=== PATIENT | male | born 1955 | race Caucasian/White ===

== ENCOUNTER 2020-10-23 14:41 | Inpatient (IN) | payer OTHER ==
[2020-10-23 17:03] LABS: BASO % 0.2 % (0-2.0); HEMATOCRIT 30.5 % (35.4-49); HEMOGLOBIN 10.7 GM/dL (11.7-16.9); LYMPH % 3.9 % (8-40); MCH 29.1 pg (25.7-33.7); MCHC 34.9 g/dl (32.0-35.9); MEAN CELL VOLUME 83.3 fl (80-96); MEAN PLT VOLUME 8.7 fl (7.5-11.1); MONO % 5.3 % (3.8-10.2); NEUT % 90.6 % (42.8-82.8); PLATELET COUNT 319 K/MM3 (134-434); RBC 3.67 M/mm3 (4.00-5.60); RDW 15.2 % (11.9-15.9); WHITE BLOOD COUNT 10.8 K/mm3 (4.0-10.0)
[2020-10-23 17:12] LABS: INR 1.03 (0.83-1.09); PROTHROMBIN TIME (PATIENT) 12.6 SEC (9.7-13.0)
[2020-10-23 17:15] LABS: ACTIVATED PTT 25.9 SECONDS (25.2-36.5)
[2020-10-23 17:39] LABS: POTASSIUM 4.5 mmol/L (3.5-5.1)
[2020-10-23 17:41] LABS: CALCIUM 7.5 mg/dL (8.5-10.1)
[2020-10-23 17:42] LABS: ALBUMIN 2.2 g/dl (3.4-5.0)
[2020-10-23 17:45] LABS: BILIRUBIN,DIRECT 0.3 mg/dL (0.0-0.2); CREATININE 2.1 mg/dL (0.55-1.3)
[2020-10-23 17:46] LABS: BILIRUBIN,TOTAL 0.8 mg/dL (0.2-1); TOT PROT 6.1 g/dl (6.4-8.2)
[2020-10-23] MEDS ORDERED: SODIUM CHLORIDE 1,000 ML IV STA (17:59)
[2020-10-23] MEDS ORDERED: DEXAMETHASONE SOD PHOSPHATE 4 MG/1 ML VIAL IVPUSH STA ×2 (20:27→20:51)
[2020-10-23] MEDS ORDERED: DEXAMETHASONE SOD PHOSPHATE 10 MG/1 ML VIAL ONE (21:30)
[2020-10-23] MEDS ORDERED: INSULIN SLIDING SCALE (NOVOLOG) 1 VIAL SQ SCH (22:00)
[2020-10-23] MEDS ORDERED: ASCORBIC ACID 500 MG TABLET (FP) ONE (22:57)
[2020-10-23] MEDS: INSULIN SLIDING SCALE (NOVOLOG) 1 VIAL SQ SCH (23:17)
[2020-10-23] MEDS: ASCORBIC ACID 500 MG TABLET (FP) PO SCH (23:18)
[2020-10-23] MEDS ORDERED: MECLIZINE HCL 25 MG TABLET (FP) PO PRN (23:36)
[2020-10-24] MEDS ORDERED: SODIUM CHLORIDE 1,000 ML IV STA (00:18)
[2020-10-24 07:41] LABS: BASO % 0.2 % (0-2.0); HEMATOCRIT 27.5 % (35.4-49); HEMOGLOBIN 9.6 GM/dL (11.7-16.9); LYMPH % 2.4 % (8-40); MCH 28.5 pg (25.7-33.7); MEAN CELL VOLUME 81.6 fl (80-96); MEAN PLT VOLUME 8.4 fl (7.5-11.1); MONO % 3.2 % (3.8-10.2); NEUT % 94.2 % (42.8-82.8); PLATELET COUNT 309 K/MM3 (134-434); RBC 3.37 M/mm3 (4.00-5.60); RDW 15.4 % (11.9-15.9); WHITE BLOOD COUNT 14.5 K/mm3 (4.0-10.0)
[2020-10-24 07:44] LABS: INR 1.01 (0.83-1.09); PROTHROMBIN TIME (PATIENT) 12.4 SEC (9.7-13.0)
[2020-10-24 08:11] LABS: POTASSIUM 4.4 mmol/L (3.5-5.1)
[2020-10-24 08:21] LABS: ALBUMIN 2.1 g/dl (3.4-5.0); BLOOD UREA NITROGEN 58.7 mg/dL (7-18); CALCIUM 7.7 mg/dL (8.5-10.1)
[2020-10-24 08:22] LABS: MAGNESIUM 2.2 mg/dL (1.8-2.4)
[2020-10-24 08:24] LABS: CREATININE 1.8 mg/dL (0.55-1.3); PHOSPHOROUS 3.3 mg/dL (2.5-4.9)
[2020-10-24 08:25] LABS: BILIRUBIN,TOTAL 1.1 mg/dL (0.2-1); TOT PROT 5.6 g/dl (6.4-8.2)
[2020-10-24] MEDS: LISINOPRIL 20 MG TABLET PO SCH (09:12)
[2020-10-24] MEDS: ZINC SULFATE 220 MG CAPSULE (FP) PO SCH (09:12)
[2020-10-24] MEDS: LEVOTHYROXINE NA 75 MCG TABLET (FP) PO SCH (09:12)
[2020-10-24] MEDS: ASCORBIC ACID 500 MG TABLET (FP) PO SCH ×2 (09:13→23:32)
[2020-10-24] MEDS: INSULIN SLIDING SCALE (NOVOLOG) 1 VIAL SQ SCH ×4 (09:13→23:28)
[2020-10-24] MEDS: CHOLECALCIFEROL (VIT D3) 1,000 UNIT (25 MCG) TABLET PO SCH (09:13)
[2020-10-24] MEDS ORDERED: FLU VACCINE (FLULAVAL) PF 60 MCG/0.5 ML SYRINGE 2020-2021 IM ONE (10:00)
[2020-10-24] MEDS ORDERED: ENOXAPARIN NA (PORCINE) 40 MG/0.4 ML DISP.SYRIN SQ SCH (10:00)
[2020-10-24 10:38] LABS: ANISOCYTOSIS 2+; MACROCYTOSIS 0; PLATELET ESTIMATE NORMAL
[2020-10-24] MEDS ORDERED: DEXAMETHASONE SOD PHOSPHATE 10 MG/1 ML VIAL IVPUSH ONE (13:46)
[2020-10-24] MEDS ORDERED: REMDESIVIR 200 MG in SODIUM CHLORIDE 210 ML IVPB ONE ×2 (13:48→15:00)
[2020-10-24] MEDS ORDERED: DEXAMETHASONE SOD PHOSPHATE 10 MG/1 ML VIAL IVPUSH SCH ×3 (14:00→15:00)
[2020-10-24] MEDS ORDERED: FAMOTIDINE 20 MG/50 ML IVPB 20 MG/50 ML MG IVPB SCH (14:00)
[2020-10-24] MEDS: DEXAMETHASONE SOD PHOSPHATE 10 MG/1 ML VIAL IVPUSH SCH (16:01)
[2020-10-24] MEDS: APIXABAN 5 MG TABLET PO SCH ×2 (16:01→23:33)
[2020-10-25] MEDS: INSULIN SLIDING SCALE (NOVOLOG) 1 VIAL SQ SCH ×4 (08:13→23:00)
[2020-10-25] MEDS: CHOLECALCIFEROL (VIT D3) 1,000 UNIT (25 MCG) TABLET PO SCH (09:41)
[2020-10-25] MEDS: APIXABAN 5 MG TABLET PO SCH ×2 (09:41→23:00)
[2020-10-25] MEDS: ASCORBIC ACID 500 MG TABLET (FP) PO SCH ×2 (09:41→23:00)
[2020-10-25] MEDS: LISINOPRIL 20 MG TABLET PO SCH (09:41)
[2020-10-25] MEDS: LEVOTHYROXINE NA 75 MCG TABLET (FP) PO SCH (09:41)
[2020-10-25] MEDS: ZINC SULFATE 220 MG CAPSULE (FP) PO SCH (09:41)
[2020-10-25] MEDS: REMDESIVIR 100 MG in SODIUM CHLORIDE 230 ML IVPB SCH (14:36)
[2020-10-25] MEDS: DEXAMETHASONE SOD PHOSPHATE 10 MG/1 ML VIAL IVPUSH SCH (14:37)
[2020-10-26] MEDS: INSULIN SLIDING SCALE (NOVOLOG) 1 VIAL SQ SCH ×4 (06:11→21:34)
[2020-10-26] MEDS: LEVOTHYROXINE NA 75 MCG TABLET (FP) PO SCH (06:12)
[2020-10-26 07:52] LABS: POTASSIUM 3.6 mmol/L (3.5-5.1)
[2020-10-26 08:00] LABS: BASO % 0.3 % (0-2.0); EOS % 0.1 % (0-4.5); HEMATOCRIT 25.2 % (35.4-49); HEMOGLOBIN 8.9 GM/dL (11.7-16.9); LYMPH % 2.3 % (8-40); MCH 28.7 pg (25.7-33.7); MCHC 35.3 g/dl (32.0-35.9); MEAN CELL VOLUME 81.2 fl (80-96); MEAN PLT VOLUME 8.2 fl (7.5-11.1); MONO % 3.6 % (3.8-10.2); NEUT % 93.7 % (42.8-82.8); PLATELET COUNT 354 K/MM3 (134-434); RBC 3.11 M/mm3 (4.00-5.60); RDW 15.3 % (11.9-15.9); WHITE BLOOD COUNT 17.8 K/mm3 (4.0-10.0)
[2020-10-26 08:01] LABS: CALCIUM 7.4 mg/dL (8.5-10.1)
[2020-10-26 08:02] LABS: ALBUMIN 1.8 g/dl (3.4-5.0); BLOOD UREA NITROGEN 68.8 mg/dL (7-18)
[2020-10-26 08:04] LABS: BILIRUBIN,TOTAL 0.8 mg/dL (0.2-1); TOT PROT 5.1 g/dl (6.4-8.2)
[2020-10-26 08:05] LABS: CREATININE 2.1 mg/dL (0.55-1.3)
[2020-10-26] MEDS: CHOLECALCIFEROL (VIT D3) 1,000 UNIT (25 MCG) TABLET PO SCH (09:28)
[2020-10-26] MEDS: ZINC SULFATE 220 MG CAPSULE (FP) PO SCH (09:29)
[2020-10-26] MEDS: ASCORBIC ACID 500 MG TABLET (FP) PO SCH ×2 (09:30→21:34)
[2020-10-26] MEDS: APIXABAN 5 MG TABLET PO SCH ×2 (09:30→21:34)
[2020-10-26] MEDS: INSULIN (LEVEMIR) 100 UNITS/ML UNITS SQ SCH (09:30)
[2020-10-26] MEDS: LISINOPRIL 20 MG TABLET PO SCH (09:30)
[2020-10-26 11:51] LABS: ANISOCYTOSIS 1+; MACROCYTOSIS 0; OVALOCYTE 1+; PLATELET ESTIMATE NORMAL
[2020-10-26] MEDS: REMDESIVIR 100 MG in SODIUM CHLORIDE 230 ML IVPB SCH (14:25)
[2020-10-26] MEDS: DEXAMETHASONE SOD PHOSPHATE 10 MG/1 ML VIAL IVPUSH SCH (14:26)
[2020-10-26] MEDS ORDERED: LACTATED RINGERS SOLUTION 1,000 ML/1,000 ML INFUS.BAG IV SCH (17:45)
[2020-10-27] MEDS: INSULIN SLIDING SCALE (NOVOLOG) 1 VIAL SQ SCH ×4 (06:40→23:28)
[2020-10-27] MEDS: LEVOTHYROXINE NA 75 MCG TABLET (FP) PO SCH (06:41)
[2020-10-27 08:24] LABS: POTASSIUM 3.6 mmol/L (3.5-5.1)
[2020-10-27 08:30] LABS: CALCIUM 7.5 mg/dL (8.5-10.1)
[2020-10-27 08:31] LABS: ALBUMIN 1.8 g/dl (3.4-5.0); BLOOD UREA NITROGEN 84.7 mg/dL (7-18); MAGNESIUM 2.5 mg/dL (1.8-2.4)
[2020-10-27 08:34] LABS: CREATININE 2.5 mg/dL (0.55-1.3)
[2020-10-27 08:36] LABS: BILIRUBIN,TOTAL 1.1 mg/dL (0.2-1); TOT PROT 5.3 g/dl (6.4-8.2)
[2020-10-27] MEDS: CHOLECALCIFEROL (VIT D3) 1,000 UNIT (25 MCG) TABLET PO SCH (10:11)
[2020-10-27] MEDS: ASCORBIC ACID 500 MG TABLET (FP) PO SCH ×2 (10:12→23:29)
[2020-10-27] MEDS: APIXABAN 5 MG TABLET PO SCH (10:12)
[2020-10-27] MEDS: ZINC SULFATE 220 MG CAPSULE (FP) PO SCH (10:12)
[2020-10-27] MEDS: INSULIN (LEVEMIR) 100 UNITS/ML UNITS SQ SCH (10:12)
[2020-10-27] MEDS: LISINOPRIL 20 MG TABLET PO SCH (10:12)
[2020-10-27] MEDS: ENOXAPARIN NA (PORCINE) 80 MG/0.8 ML DISP.SYRIN SQ SCH ×2 (15:24→23:29)
[2020-10-27] MEDS: DEXAMETHASONE SOD PHOSPHATE 10 MG/1 ML VIAL IVPUSH SCH (15:25)
[2020-10-27] MEDS: REMDESIVIR 100 MG in SODIUM CHLORIDE 230 ML IVPB SCH (15:25)
[2020-10-27] MEDS: LACTATED RINGERS SOLUTION 1,000 ML/1,000 ML INFUS.BAG IV SCH (17:23)
[2020-10-27] MEDS: LIDOCAINE 5% TOPICAL PATCH TP SCH (17:23)
[2020-10-27] MEDS: LIDOCAINE PATCH REMOVAL MC SCH (23:28)
[2020-10-28] MEDS: INSULIN SLIDING SCALE (NOVOLOG) 1 VIAL SQ SCH ×4 (06:30→21:07)
[2020-10-28 06:50] LABS: EPI CELLS 12 /uL (0-25.1); HYALINE CASTS 2 /uL (0-3.1); URINE APPEARANCE CLOUDY; URINE BACTERIA 12 /uL (0-1359); URINE BILIRUBIN NEGATIVE (NEGATIVE); URINE COLOR YELLOW; URINE GLUCOSE (UA) NEGATIVE (NEGATIVE); URINE KETONE NEGATIVE (NEGATIVE); URINE LEUK ESTERASE NEGATIVE (NEGATIVE); URINE NITRITE NEGATIVE (NEGATIVE); URINE PROTEIN 3+ (NEGATIVE); URINE RBC 8 /uL (0-23.9); URINE WBC 17 /uL (0-25.8)
[2020-10-28] MEDS: INSULIN (LEVEMIR) 100 UNITS/ML UNITS SQ SCH ×2 (07:00→11:13)
[2020-10-28] MEDS: LEVOTHYROXINE NA 75 MCG TABLET (FP) PO SCH (07:57)
[2020-10-28 08:54] LABS: BASO % 0.1 % (0-2.0); HEMATOCRIT 27.6 % (35.4-49); HEMOGLOBIN 9.7 GM/dL (11.7-16.9); LYMPH % 2.1 % (8-40); MCH 28.9 pg (25.7-33.7); MEAN CELL VOLUME 82.6 fl (80-96); MEAN PLT VOLUME 8.9 fl (7.5-11.1); MONO % 4.7 % (3.8-10.2); NEUT % 93.1 % (42.8-82.8); PLATELET COUNT 565 K/MM3 (134-434); RBC 3.34 M/mm3 (4.00-5.60); RDW 15.7 % (11.9-15.9); WHITE BLOOD COUNT 13.8 K/mm3 (4.0-10.0)
[2020-10-28 09:21] LABS: CALCIUM 7.4 mg/dL (8.5-10.1)
[2020-10-28 09:22] LABS: ALBUMIN 1.8 g/dl (3.4-5.0); BLOOD UREA NITROGEN 87.7 mg/dL (7-18); MAGNESIUM 2.5 mg/dL (1.8-2.4)
[2020-10-28 09:25] LABS: CREATININE 2.5 mg/dL (0.55-1.3); PHOSPHOROUS 5.8 mg/dL (2.5-4.9)
[2020-10-28 09:26] LABS: BILIRUBIN,TOTAL 0.6 mg/dL (0.2-1)
[2020-10-28 09:27] LABS: TOT PROT 5.2 g/dl (6.4-8.2)
[2020-10-28] MEDS: ASCORBIC ACID 500 MG TABLET (FP) PO SCH ×2 (11:14→21:08)
[2020-10-28] MEDS: ZINC SULFATE 220 MG CAPSULE (FP) PO SCH (11:14)
[2020-10-28] MEDS: CHOLECALCIFEROL (VIT D3) 1,000 UNIT (25 MCG) TABLET PO SCH (11:14)
[2020-10-28] MEDS: LIDOCAINE 5% TOPICAL PATCH TP SCH (11:15)
[2020-10-28] MEDS: amLODIPine BESYLATE 2.5 MG TABLET (FP) PO SCH (11:15)
[2020-10-28] MEDS: ENOXAPARIN NA (PORCINE) 80 MG/0.8 ML DISP.SYRIN SQ SCH ×2 (11:15→21:08)
[2020-10-28 11:53] LABS: ANISOCYTOSIS 1+; MACROCYTOSIS 0; PLATELET ESTIMATE INCREASED
[2020-10-28 12:05] LABS: OVALOCYTE 1+
[2020-10-28] MEDS: LACTATED RINGERS SOLUTION 1,000 ML/1,000 ML INFUS.BAG IV SCH ×2 (12:11→14:42)
[2020-10-28] MEDS: ACETAMINOPHEN 325 MG TABLET (FP) PO PRN (14:42)
[2020-10-28] MEDS: REMDESIVIR 100 MG in SODIUM CHLORIDE 230 ML IVPB SCH (14:43)
[2020-10-28] MEDS: DEXAMETHASONE SOD PHOSPHATE 10 MG/1 ML VIAL IVPUSH SCH (14:56)
[2020-10-28] MEDS: LIDOCAINE PATCH REMOVAL MC SCH (21:08)
[2020-10-29] MEDS: ACETAMINOPHEN 325 MG TABLET (FP) PO PRN ×2 (04:16→22:40)
[2020-10-29] MEDS: INSULIN SLIDING SCALE (NOVOLOG) 1 VIAL SQ SCH ×4 (07:04→22:38)
[2020-10-29] MEDS: LEVOTHYROXINE NA 75 MCG TABLET (FP) PO SCH (07:04)
[2020-10-29 07:30] LABS: BASO % 0.1 % (0-2.0); EOS % 0.3 % (0-4.5); HEMOGLOBIN 8.5 GM/dL (11.7-16.9); LYMPH % 3.5 % (8-40); MCH 28.3 pg (25.7-33.7); MCHC 34.1 g/dl (32.0-35.9); MEAN PLT VOLUME 8.2 fl (7.5-11.1); MONO % 3.5 % (3.8-10.2); NEUT % 92.6 % (42.8-82.8); PLATELET COUNT 494 K/MM3 (134-434); RBC 3.01 M/mm3 (4.00-5.60); RDW 15.6 % (11.9-15.9); WHITE BLOOD COUNT 13.4 K/mm3 (4.0-10.0)
[2020-10-29 07:44] LABS: POTASSIUM 3.8 mmol/L (3.5-5.1)
[2020-10-29 07:52] LABS: ALBUMIN 1.6 g/dl (3.4-5.0); CALCIUM 7.2 mg/dL (8.5-10.1)
[2020-10-29 07:53] LABS: BLOOD UREA NITROGEN 71.5 mg/dL (7-18); MAGNESIUM 2.2 mg/dL (1.8-2.4)
[2020-10-29 07:54] LABS: BILIRUBIN,TOTAL 0.5 mg/dL (0.2-1); TOT PROT 4.9 g/dl (6.4-8.2)
[2020-10-29 07:56] LABS: PHOSPHOROUS 3.3 mg/dL (2.5-4.9)
[2020-10-29] MEDS ORDERED: INSULIN (NOVOLOG) ASPART 100 UNITS/ML 10ML VIAL ONE (10:49)
[2020-10-29 10:57] LABS: ANISOCYTOSIS 2+; MACROCYTOSIS 0; PLATELET ESTIMATE INCREASED; TOXIC GRANULATION 2+
[2020-10-29] MEDS: INSULIN (LEVEMIR) 100 UNITS/ML UNITS SQ SCH (11:14)
[2020-10-29] MEDS: CHOLECALCIFEROL (VIT D3) 1,000 UNIT (25 MCG) TABLET PO SCH (11:14)
[2020-10-29] MEDS: LIDOCAINE 5% TOPICAL PATCH TP SCH (11:14)
[2020-10-29] MEDS: amLODIPine BESYLATE 2.5 MG TABLET (FP) PO SCH (11:15)
[2020-10-29] MEDS: ZINC SULFATE 220 MG CAPSULE (FP) PO SCH (11:15)
[2020-10-29] MEDS: ASCORBIC ACID 500 MG TABLET (FP) PO SCH ×2 (11:15→22:41)
[2020-10-29] MEDS: ENOXAPARIN NA (PORCINE) 80 MG/0.8 ML DISP.SYRIN SQ SCH ×2 (11:20→22:37)
[2020-10-29] MEDS: LACTATED RINGERS SOLUTION 1,000 ML/1,000 ML INFUS.BAG IV SCH (12:42)
[2020-10-29] MEDS: DEXAMETHASONE SOD PHOSPHATE 10 MG/1 ML VIAL IVPUSH SCH (14:10)
[2020-10-29] MEDS: guaiFENesin/CODEINE 10 ML UNIT-DOSE CUPS PO PRN (14:10)
[2020-10-29] MEDS: LIDOCAINE PATCH REMOVAL MC SCH (22:42)
[2020-10-30] MEDS: guaiFENesin/CODEINE 10 ML UNIT-DOSE CUPS PO PRN ×2 (01:08→22:31)
[2020-10-30] MEDS: INSULIN SLIDING SCALE (NOVOLOG) 1 VIAL SQ SCH ×5 (07:00→23:00)
[2020-10-30] MEDS: LEVOTHYROXINE NA 75 MCG TABLET (FP) PO SCH (07:02)
[2020-10-30 07:43] LABS: POTASSIUM 3.8 mmol/L (3.5-5.1)
[2020-10-30 07:56] LABS: ALBUMIN 1.5 g/dl (3.4-5.0); BLOOD UREA NITROGEN 69.9 mg/dL (7-18)
[2020-10-30 07:58] LABS: CALCIUM 7.1 mg/dL (8.5-10.1)
[2020-10-30 07:59] LABS: CREATININE 1.9 mg/dL (0.55-1.3); MAGNESIUM 2.2 mg/dL (1.8-2.4); PHOSPHOROUS 4.3 mg/dL (2.5-4.9)
[2020-10-30 08:00] LABS: BILIRUBIN,TOTAL 0.8 mg/dL (0.2-1)
[2020-10-30 08:01] LABS: TOT PROT 4.9 g/dl (6.4-8.2)
[2020-10-30] MEDS ORDERED: INSULIN (LEVEMIR) 100 UNITS/ML UNITS SQ SCH (08:36)
[2020-10-30 09:49] LABS: BASO % 0.2 % (0-2.0); EOS % 0.1 % (0-4.5); HEMATOCRIT 25.2 % (35.4-49); HEMOGLOBIN 8.6 GM/dL (11.7-16.9); LYMPH % 2.1 % (8-40); MCH 28.3 pg (25.7-33.7); MCHC 33.9 g/dl (32.0-35.9); MEAN CELL VOLUME 83.4 fl (80-96); MEAN PLT VOLUME 8.8 fl (7.5-11.1); MONO % 2.8 % (3.8-10.2); NEUT % 94.8 % (42.8-82.8); PLATELET COUNT 450 K/MM3 (134-434); RBC 3.03 M/mm3 (4.00-5.60); RDW 15.7 % (11.9-15.9); WHITE BLOOD COUNT 13.9 K/mm3 (4.0-10.0)
[2020-10-30] MEDS: CHOLECALCIFEROL (VIT D3) 1,000 UNIT (25 MCG) TABLET PO SCH (11:50)
[2020-10-30] MEDS: amLODIPine BESYLATE 2.5 MG TABLET (FP) PO SCH (11:50)
[2020-10-30] MEDS: ASCORBIC ACID 500 MG TABLET (FP) PO SCH ×2 (11:50→22:31)
[2020-10-30] MEDS: LIDOCAINE 5% TOPICAL PATCH TP SCH (11:50)
[2020-10-30] MEDS: ENOXAPARIN NA (PORCINE) 80 MG/0.8 ML DISP.SYRIN SQ SCH ×2 (11:50→22:31)
[2020-10-30] MEDS: ZINC SULFATE 220 MG CAPSULE (FP) PO SCH (11:50)
[2020-10-30 11:52] LABS: ANISOCYTOSIS 1+; MACROCYTOSIS 0; PLATELET ESTIMATE NORMAL
[2020-10-30] MEDS: DEXAMETHASONE SOD PHOSPHATE 10 MG/1 ML VIAL IVPUSH SCH (18:02)
[2020-10-30] MEDS: LACTATED RINGERS SOLUTION 1,000 ML/1,000 ML INFUS.BAG IV SCH (18:03)
[2020-10-30] MEDS: LIDOCAINE PATCH REMOVAL MC SCH (22:32)
[2020-10-31] MEDS: LEVOTHYROXINE NA 75 MCG TABLET (FP) PO SCH (06:07)
[2020-10-31] MEDS: INSULIN SLIDING SCALE (NOVOLOG) 1 VIAL SQ SCH ×3 (06:27→16:49)
[2020-10-31 08:45] LABS: BASO % 0.1 % (0-2.0); EOS % 0.1 % (0-4.5); HEMOGLOBIN 8.6 GM/dL (11.7-16.9); LYMPH % 1.9 % (8-40); MCH 28.4 pg (25.7-33.7); MCHC 34.3 g/dl (32.0-35.9); MEAN CELL VOLUME 82.7 fl (80-96); MEAN PLT VOLUME 8.8 fl (7.5-11.1); MONO % 1.9 % (3.8-10.2); PLATELET COUNT 549 K/MM3 (134-434); RBC 3.03 M/mm3 (4.00-5.60); RDW 15.8 % (11.9-15.9); WHITE BLOOD COUNT 12.6 K/mm3 (4.0-10.0)
[2020-10-31 09:03] LABS: POTASSIUM 4.2 mmol/L (3.5-5.1)
[2020-10-31 09:06] LABS: BLOOD UREA NITROGEN 60.7 mg/dL (7-18)
[2020-10-31 09:09] LABS: CREATININE 1.7 mg/dL (0.55-1.3)
[2020-10-31 09:10] LABS: PHOSPHOROUS 4.2 mg/dL (2.5-4.9)
[2020-10-31 09:53] LABS: CALCIUM 6.9 mg/dL (8.5-10.1)
[2020-10-31 11:14] LABS: ANISOCYTOSIS 0; MACROCYTOSIS 0; OVALOCYTE 3+; PLATELET ESTIMATE INCREASED
[2020-10-31] MEDS: LIDOCAINE 5% TOPICAL PATCH TP SCH (11:50)
[2020-10-31] MEDS: amLODIPine BESYLATE 2.5 MG TABLET (FP) PO SCH (11:51)
[2020-10-31] MEDS: ENOXAPARIN NA (PORCINE) 80 MG/0.8 ML DISP.SYRIN SQ SCH ×2 (11:51→22:24)
[2020-10-31] MEDS: ZINC SULFATE 220 MG CAPSULE (FP) PO SCH (11:51)
[2020-10-31] MEDS: CHOLECALCIFEROL (VIT D3) 1,000 UNIT (25 MCG) TABLET PO SCH (11:52)
[2020-10-31] MEDS: ASCORBIC ACID 500 MG TABLET (FP) PO SCH ×2 (11:52→22:25)
[2020-10-31] MEDS: LACTATED RINGERS SOLUTION 1,000 ML/1,000 ML INFUS.BAG IV SCH (12:34)
[2020-10-31] MEDS: DEXAMETHASONE SOD PHOSPHATE 10 MG/1 ML VIAL IVPUSH SCH (15:20)
[2020-10-31] MEDS: LIDOCAINE PATCH REMOVAL MC SCH (22:25)
[2020-11-01 06:51] LABS: BASO % 0.2 % (0-2.0); EOS % 0.2 % (0-4.5); HEMATOCRIT 24.7 % (35.4-49); HEMOGLOBIN 8.7 GM/dL (11.7-16.9); MCHC 35.4 g/dl (32.0-35.9); MEAN PLT VOLUME 8.3 fl (7.5-11.1); MONO % 2.3 % (3.8-10.2); NEUT % 95.3 % (42.8-82.8); PLATELET COUNT 619 K/MM3 (134-434); RBC 3.01 M/mm3 (4.00-5.60); RDW 15.8 % (11.9-15.9); WHITE BLOOD COUNT 15.8 K/mm3 (4.0-10.0)
[2020-11-01] MEDS: INSULIN SLIDING SCALE (NOVOLOG) 1 VIAL SQ SCH ×4 (07:02→22:38)
[2020-11-01] MEDS: LEVOTHYROXINE NA 75 MCG TABLET (FP) PO SCH (07:02)
[2020-11-01 07:09] LABS: POTASSIUM 4.5 mmol/L (3.5-5.1)
[2020-11-01 07:10] LABS: ALBUMIN 1.6 g/dl (3.4-5.0); BLOOD UREA NITROGEN 63.2 mg/dL (7-18); CALCIUM 7.3 mg/dL (8.5-10.1); MAGNESIUM 2.1 mg/dL (1.8-2.4)
[2020-11-01 07:13] LABS: CREATININE 1.7 mg/dL (0.55-1.3)
[2020-11-01 07:14] LABS: PHOSPHOROUS 3.9 mg/dL (2.5-4.9)
[2020-11-01 07:15] LABS: BILIRUBIN,TOTAL 1.1 mg/dL (0.2-1); TOT PROT 5.3 g/dl (6.4-8.2)
[2020-11-01 09:11] LABS: ANISOCYTOSIS 1+; MACROCYTOSIS 0; OVALOCYTE 2+; PLATELET ESTIMATE INCREASED
[2020-11-01] MEDS: ENOXAPARIN NA (PORCINE) 80 MG/0.8 ML DISP.SYRIN SQ SCH ×2 (10:16→22:08)
[2020-11-01] MEDS: LIDOCAINE 5% TOPICAL PATCH TP SCH (10:16)
[2020-11-01] MEDS: ASCORBIC ACID 500 MG TABLET (FP) PO SCH ×2 (10:19→21:59)
[2020-11-01] MEDS: ZINC SULFATE 220 MG CAPSULE (FP) PO SCH (10:19)
[2020-11-01] MEDS: amLODIPine BESYLATE 2.5 MG TABLET (FP) PO SCH (10:19)
[2020-11-01] MEDS: CHOLECALCIFEROL (VIT D3) 1,000 UNIT (25 MCG) TABLET PO SCH (10:20)
[2020-11-01] MEDS: LACTATED RINGERS SOLUTION 1,000 ML/1,000 ML INFUS.BAG IV SCH ×2 (11:21→12:51)
[2020-11-01] MEDS: DEXAMETHASONE SOD PHOSPHATE 10 MG/1 ML VIAL IVPUSH SCH (14:06)
[2020-11-01] MEDS: LIDOCAINE PATCH REMOVAL MC SCH (21:59)
[2020-11-02] MEDS: ACETAMINOPHEN 325 MG TABLET (FP) PO PRN ×2 (06:24→22:20)
[2020-11-02] MEDS: INSULIN SLIDING SCALE (NOVOLOG) 1 VIAL SQ SCH ×4 (06:25→23:08)
[2020-11-02] MEDS: LEVOTHYROXINE NA 75 MCG TABLET (FP) PO SCH (06:29)
[2020-11-02 08:02] LABS: EOS % 0.4 % (0-4.5); HEMATOCRIT 25.3 % (35.4-49); HEMOGLOBIN 8.7 GM/dL (11.7-16.9); LYMPH % 1.2 % (8-40); MCH 28.4 pg (25.7-33.7); MCHC 34.5 g/dl (32.0-35.9); MEAN CELL VOLUME 82.2 fl (80-96); MEAN PLT VOLUME 8.4 fl (7.5-11.1); MONO % 1.7 % (3.8-10.2); NEUT % 96.7 % (42.8-82.8); PLATELET COUNT 551 K/MM3 (134-434); RBC 3.08 M/mm3 (4.00-5.60); WHITE BLOOD COUNT 19.6 K/mm3 (4.0-10.0)
[2020-11-02 08:20] LABS: POTASSIUM 4.1 mmol/L (3.5-5.1)
[2020-11-02 08:23] LABS: ALBUMIN 1.4 g/dl (3.4-5.0); BLOOD UREA NITROGEN 54.1 mg/dL (7-18); CALCIUM 7.2 mg/dL (8.5-10.1)
[2020-11-02 08:27] LABS: CREATININE 1.4 mg/dL (0.55-1.3); PHOSPHOROUS 3.1 mg/dL (2.5-4.9)
[2020-11-02 08:28] LABS: BILIRUBIN,TOTAL 0.8 mg/dL (0.2-1)
[2020-11-02] MEDS: ENOXAPARIN NA (PORCINE) 80 MG/0.8 ML DISP.SYRIN SQ SCH ×2 (10:00→22:20)
[2020-11-02] MEDS: CHOLECALCIFEROL (VIT D3) 1,000 UNIT (25 MCG) TABLET PO SCH (10:00)
[2020-11-02] MEDS: ASCORBIC ACID 500 MG TABLET (FP) PO SCH ×2 (10:00→22:20)
[2020-11-02] MEDS: LIDOCAINE 5% TOPICAL PATCH TP SCH (10:00)
[2020-11-02] MEDS: amLODIPine BESYLATE 2.5 MG TABLET (FP) PO SCH (10:01)
[2020-11-02] MEDS: LACTATED RINGERS SOLUTION 1,000 ML/1,000 ML INFUS.BAG IV SCH (12:12)
[2020-11-02 12:24] LABS: ANISOCYTOSIS 1+; MACROCYTOSIS 0; OVALOCYTE 1+; PLATELET ESTIMATE INCREASED
[2020-11-02] MEDS: DEXAMETHASONE SOD PHOSPHATE 10 MG/1 ML VIAL IVPUSH SCH (14:39)
[2020-11-02] MEDS: LIDOCAINE PATCH REMOVAL MC SCH (22:19)
[2020-11-02] MEDS ORDERED: MORPHINE SULFATE 2 MG/ML VIAL IVPUSH ONE (22:41)
[2020-11-02 23:17] LABS: ARTERIAL BLD GAS O2 SATURATION 93.9 mmHg (95-98); ARTERIAL BLOOD GAS BASE EXCESS 1.7 mmol/L (-2-2); ARTERIAL BLOOD GAS PO2 67.3 mmHg (80-100); ARTERIAL BLOOD GAS pH 7.431 (7.350-7.450)
[2020-11-02 23:18] LABS: ALLENS TEST POSITIVE
[2020-11-02 23:19] LABS: PT'S TEMP 98.6
[2020-11-03] MEDS ORDERED: PANTOPRAZOLE SODIUM 40 MG VIAL IVPUSH ONE (05:57)
[2020-11-03] MEDS: INSULIN SLIDING SCALE (NOVOLOG) 1 VIAL SQ SCH ×5 (07:02→22:43)
[2020-11-03] MEDS: LEVOTHYROXINE NA 75 MCG TABLET (FP) PO SCH (07:02)
[2020-11-03 07:05] LABS: BASO % 0.1 % (0-2.0); EOS % 0.1 % (0-4.5); HEMATOCRIT 24.5 % (35.4-49); HEMOGLOBIN 8.5 GM/dL (11.7-16.9); LYMPH % 1.2 % (8-40); MCH 28.5 pg (25.7-33.7); MCHC 34.7 g/dl (32.0-35.9); MEAN CELL VOLUME 82.2 fl (80-96); MEAN PLT VOLUME 8.4 fl (7.5-11.1); MONO % 2.4 % (3.8-10.2); NEUT % 96.2 % (42.8-82.8); PLATELET COUNT 524 K/MM3 (134-434); RBC 2.98 M/mm3 (4.00-5.60); RDW 16.2 % (11.9-15.9); WHITE BLOOD COUNT 22.7 K/mm3 (4.0-10.0)
[2020-11-03 07:34] LABS: PHOSPHOROUS 3.7 mg/dL (2.5-4.9)
[2020-11-03] MEDS ORDERED: CITALOPRAM HYDROBROMIDE 20 MG TABLET PO SCH (10:00)
[2020-11-03] MEDS ORDERED: PANTOPRAZOLE SODIUM 40 MG VIAL IVPUSH SCH (10:00)
[2020-11-03] MEDS: amLODIPine BESYLATE 2.5 MG TABLET (FP) PO SCH (10:29)
[2020-11-03] MEDS: ASCORBIC ACID 500 MG TABLET (FP) PO SCH ×2 (10:29→22:44)
[2020-11-03] MEDS: CHOLECALCIFEROL (VIT D3) 1,000 UNIT (25 MCG) TABLET PO SCH (10:29)
[2020-11-03] MEDS: DEXAMETHASONE SOD PHOSPHATE 10 MG/1 ML VIAL IVPUSH SCH ×3 (11:08→22:41)
[2020-11-03] MEDS: ENOXAPARIN NA (PORCINE) 80 MG/0.8 ML DISP.SYRIN SQ SCH ×2 (11:08→22:43)
[2020-11-03 12:21] LABS: ANISOCYTOSIS 1+; MACROCYTOSIS 0; OVALOCYTE 2+; PLATELET ESTIMATE INCREASED; TEAR DROP CELLS 1+; TOXIC GRANULATION 1+
[2020-11-03] MEDS ORDERED: SODIUM CHLORIDE 0.9% 500 ML INFUS.BAG IV ONE (13:16)
[2020-11-03] MEDS ORDERED: LACTATED RINGERS SOLUTION 1,000 ML/1,000 ML INFUS.BAG IV SCH (13:17)
[2020-11-03] MEDS: LIDOCAINE 5% TOPICAL PATCH TP SCH (17:18)
[2020-11-03] MEDS: MIDAZOLAM IN 0.9 % SOD.CHLORID 100 MG/100 ML PLAST..BAG IVPB SCH (18:30)
[2020-11-03] MEDS ORDERED: MIDAZOLAM 100 MG/100 ML MG IVPB ONE (18:43)
[2020-11-03] MEDS ORDERED: NOREPINEPHRINE BITARTRATE 8,000 MCG/500 ML BAG IVPB SCH (18:45)
[2020-11-03] MEDS ORDERED: VECURONIUM BROMIDE 10 MG/10 ML VIAL ONE (19:09)
[2020-11-03] MEDS ORDERED: VECURONIUM BROMIDE 50 MG/50 ML VIAL IVPUSH ONE (19:13)
[2020-11-03] MEDS ORDERED: FENTANYL NS IVPB 500 MCG/100 ML BAG IVPB ONE (19:16)
[2020-11-03] MEDS: FENTANYL IVPB 500 MCG/100 ML BAG IVPB SCH (19:30)
[2020-11-03] MEDS: NOREPINEPHRINE D5W PREMIX 16,000 MCG/500 ML BAG IVPB SCH (20:15)
[2020-11-03] MEDS: VECURONIUM BROMIDE 100 MG/100 ML BAG IVPB SCH (21:42)
[2020-11-03] MEDS: FAMOTIDINE 20 MG/50 ML IVPB 20 MG/50 ML MG IVPB SCH (22:40)
[2020-11-03] MEDS: LIDOCAINE PATCH REMOVAL MC SCH (22:43)
[2020-11-04] MEDS: DEXAMETHASONE SOD PHOSPHATE 10 MG/1 ML VIAL IVPUSH SCH ×4 (03:14→21:10)
[2020-11-04] MEDS ORDERED: MIDAZOLAM 100 MG/100 ML MG IVPB ONE ×3 (03:29→22:21)
[2020-11-04] MEDS: MIDAZOLAM IN 0.9 % SOD.CHLORID 100 MG/100 ML PLAST..BAG IVPB SCH ×2 (03:35→13:45)
[2020-11-04] MEDS: INSULIN SLIDING SCALE (NOVOLOG) 1 VIAL SQ SCH ×4 (06:42→22:07)
[2020-11-04] MEDS: LEVOTHYROXINE NA 75 MCG TABLET (FP) PO SCH (06:55)
[2020-11-04 07:25] LABS: BASO % 0.1 % (0-2.0); HEMOGLOBIN 8.7 GM/dL (11.7-16.9); LYMPH % 0.6 % (8-40); MCHC 32.3 g/dl (32.0-35.9); MEAN CELL VOLUME 86.5 fl (80-96); MONO % 2.9 % (3.8-10.2); NEUT % 96.4 % (42.8-82.8); PLATELET COUNT 918 K/MM3 (134-434); RBC 3.12 M/mm3 (4.00-5.60); RDW 16.8 % (11.9-15.9)
[2020-11-04 07:35] LABS: WHITE BLOOD COUNT 57.4 K/mm3 (4.0-10.0)
[2020-11-04 07:43] LABS: POTASSIUM 5.2 mmol/L (3.5-5.1)
[2020-11-04 07:47] LABS: CALCIUM 7.2 mg/dL (8.5-10.1)
[2020-11-04 07:48] LABS: ALBUMIN 1.5 g/dl (3.4-5.0); BLOOD UREA NITROGEN 57.8 mg/dL (7-18); MAGNESIUM 2.3 mg/dL (1.8-2.4)
[2020-11-04 07:52] LABS: BILIRUBIN,TOTAL 0.4 mg/dL (0.2-1)
[2020-11-04 07:53] LABS: TOT PROT 5.5 g/dl (6.4-8.2)
[2020-11-04 08:23] LABS: PHOSPHOROUS 8.2 mg/dL (2.5-4.9)
[2020-11-04 09:10] LABS: ANISOCYTOSIS 0; MACROCYTOSIS 0; OVALOCYTE 2+; PLATELET ESTIMATE INCREASED
[2020-11-04] MEDS ORDERED: NOREPINEPHRINE BITARTRATE 4 MG/4 ML ML IV ONE (09:19)
[2020-11-04] MEDS ORDERED: NOREPINEPHRINE D5W PREMIX 16,000 MCG/500 ML BAG IVPB ONE (09:19)
[2020-11-04] MEDS: amLODIPine BESYLATE 2.5 MG TABLET (FP) PO SCH (09:36)
[2020-11-04] MEDS: LIDOCAINE 5% TOPICAL PATCH TP SCH (09:37)
[2020-11-04] MEDS: FAMOTIDINE 20 MG/50 ML IVPB 20 MG/50 ML MG IVPB SCH ×2 (09:38→21:13)
[2020-11-04] MEDS: ENOXAPARIN NA (PORCINE) 80 MG/0.8 ML DISP.SYRIN SQ SCH ×2 (09:38→21:11)
[2020-11-04 09:47] LABS: ARTERIAL BLD GAS O2 SATURATION 83.6 mmHg (95-98); ARTERIAL BLOOD GAS PO2 70.3 mmHg (80-100)
[2020-11-04 09:50] LABS: ALLENS TEST POSITIVE
[2020-11-04 09:51] LABS: VENT MODE VOC/AV; VENT RATE 14
[2020-11-04 10:03] LABS: ARTERIAL BLOOD GAS pH 7.042 (7.350-7.450)
[2020-11-04] MEDS ORDERED: SODIUM CHLORIDE 1,000 ML IV SCH ×2 (10:15→12:00)
[2020-11-04] MEDS ORDERED: MECLIZINE HCL 25 MG TABLET (FP) NGT PRN (11:31)
[2020-11-04] MEDS ORDERED: ASCORBIC ACID 500 MG/5 ML UNIT DOSE CUP NGT SCH (11:44)
[2020-11-04] MEDS: NOREPINEPHRINE D5W PREMIX 16,000 MCG/500 ML BAG IVPB SCH (12:43)
[2020-11-04] MEDS ORDERED: SODIUM ZIRCONIUM CYCLOSILICATE (LOKELMA) 5 GM PACKET PO ONE (13:15)
[2020-11-04] MEDS ORDERED: SODIUM CHLORIDE 0.45% 1,000 ML IV SCH (13:30)
[2020-11-04] MEDS ORDERED: FENTANYL NS IVPB 500 MCG/100 ML BAG IVPB ONE (13:43)
[2020-11-04] MEDS: FENTANYL IVPB 500 MCG/100 ML BAG IVPB SCH (13:46)
[2020-11-04] MEDS ORDERED: PT OWN MED DRAWER 7, Y5N ONE ×2 (13:49→15:07)
[2020-11-04] MEDS: CHOLECALCIFEROL (VIT D3) 1,000 UNIT (25 MCG) TABLET PO SCH (13:53)
[2020-11-04 14:39] LABS: ARTERIAL BLD GAS O2 SATURATION 84.8 mmHg (95-98); ARTERIAL BLOOD GAS BASE EXCESS -6.7 mmol/L (-2-2); ARTERIAL BLOOD GAS PO2 68.3 mmHg (80-100)
[2020-11-04 14:45] LABS: VENT RATE 28
[2020-11-04 14:49] LABS: ARTERIAL BLOOD GAS pH 7.084 (7.350-7.450)
[2020-11-04] MEDS ORDERED: SODIUM BICARBONATE 8.4% 50 MEQ/50 ML DISP.SYRIN IVPUSH ONE ×2 (14:52)
[2020-11-04] MEDS ORDERED: SODIUM BICARBONATE 8.4% 50 MEQ/50 ML VIAL ONE (14:59)
[2020-11-04] MEDS: ASCORBIC ACID 500 MG/5 ML NGT SCH ×2 (15:10→21:28)
[2020-11-04] MEDS: ASCORBIC ACID 500 MG TABLET (FP) PO SCH (15:14)
[2020-11-04 15:29] LABS: BASO % 0.4 % (0-2.0); HEMATOCRIT 27.9 % (35.4-49); HEMOGLOBIN 8.6 GM/dL (11.7-16.9); LYMPH % 0.5 % (8-40); MCHC 30.8 g/dl (32.0-35.9); MEAN CELL VOLUME 87.5 fl (80-96); MEAN PLT VOLUME 9.3 fl (7.5-11.1); MONO % 1.8 % (3.8-10.2); NEUT % 97.3 % (42.8-82.8); PLATELET COUNT 834 K/MM3 (134-434); RBC 3.19 M/mm3 (4.00-5.60)
[2020-11-04 15:32] LABS: WHITE BLOOD COUNT 67.8 K/mm3 (4.0-10.0)
[2020-11-04] MEDS ORDERED: VANCOMYCIN 750 MG in DEXTROSE 5%-WATER - 250 ML IVPB ONE (15:50)
[2020-11-04 16:33] LABS: ANISOCYTOSIS 2+; MACROCYTOSIS 0; OVALOCYTE 2+; PLATELET ESTIMATE INCREASED
[2020-11-04] MEDS: VASOPRESSIN 40 UNITS in SODIUM CHLORIDE 98 ML IVPB SCH (17:17)
[2020-11-04] MEDS ORDERED: PIPERACILLIN/TAZOBACTAM 3.375 GM VIAL IVPB ONE (18:12)
[2020-11-04] MEDS ORDERED: DEXTROSE 5%-WATER - 50 ML IVPB ONE (18:12)
[2020-11-04] MEDS: PIPERACILLIN/TAZOB 3.375 GM 3.375 GM in DEXTROSE 5%-WATER - 50 ML IVPB SCH ×2 (18:43→21:38)
[2020-11-04] MEDS: SODIUM BICARBONATE 8.4% 50 MEQ/50 ML DISP.SYRIN IVPUSH SCH (21:07)
[2020-11-04] MEDS: LIDOCAINE PATCH REMOVAL MC SCH (22:10)
[2020-11-05] MEDS ORDERED: DEXTROSE 5%-WATER - 50 ML IVPB ONE ×4 (00:45→21:36)
[2020-11-05] MEDS ORDERED: PIPERACILLIN/TAZOBACTAM 3.375 GM VIAL IVPB ONE ×2 (00:45→09:16)
[2020-11-05] MEDS ORDERED: FENTANYL IVPB 500 MCG/100 ML BAG IVPB ONE (00:48)
[2020-11-05] MEDS: PIPERACILLIN/TAZOB 3.375 GM 3.375 GM in DEXTROSE 5%-WATER - 50 ML IVPB SCH ×2 (02:57→09:25)
[2020-11-05] MEDS: MIDAZOLAM 100 MG/100 ML MG IVPB SCH ×3 (02:58→17:08)
[2020-11-05] MEDS: FENTANYL NS IVPB 500 MCG/100 ML BAG IVPB SCH ×2 (02:59→12:00)
[2020-11-05] MEDS: SODIUM BICARBONATE 8.4% 50 MEQ/50 ML DISP.SYRIN IVPUSH SCH ×4 (03:36→21:46)
[2020-11-05] MEDS: NOREPINEPHRINE D5W PREMIX 16,000 MCG/500 ML BAG IVPB SCH ×3 (05:00→21:33)
[2020-11-05] MEDS: INSULIN SLIDING SCALE (NOVOLOG) 1 VIAL SQ SCH ×4 (06:05→22:11)
[2020-11-05] MEDS: LEVOTHYROXINE SODIUM 100 MCG VIAL IVPUSH SCH (06:28)
[2020-11-05 07:11] LABS: BASO % 0.2 % (0-2.0); HEMATOCRIT 26.6 % (35.4-49); HEMOGLOBIN 8.8 GM/dL (11.7-16.9); LYMPH % 0.5 % (8-40); MCH 28.2 pg (25.7-33.7); MCHC 32.9 g/dl (32.0-35.9); MEAN CELL VOLUME 85.7 fl (80-96); MEAN PLT VOLUME 8.9 fl (7.5-11.1); MONO % 2.3 % (3.8-10.2); PLATELET COUNT 494 K/MM3 (134-434); RBC 3.11 M/mm3 (4.00-5.60); RDW 17.1 % (11.9-15.9)
[2020-11-05 07:17] LABS: POTASSIUM 4.5 mmol/L (3.5-5.1)
[2020-11-05 07:24] LABS: ALBUMIN 1.4 g/dl (3.4-5.0); BLOOD UREA NITROGEN 65.8 mg/dL (7-18); MAGNESIUM 2.4 mg/dL (1.8-2.4)
[2020-11-05] MEDS: VECURONIUM BROMIDE 100 MG/100 ML BAG IVPB SCH ×2 (07:25→21:33)
[2020-11-05 07:27] LABS: PHOSPHOROUS 6.5 mg/dL (2.5-4.9)
[2020-11-05 07:28] LABS: BILIRUBIN,TOTAL 1.5 mg/dL (0.2-1); TOT PROT 5.4 g/dl (6.4-8.2)
[2020-11-05 07:31] LABS: WHITE BLOOD COUNT 47.4 K/mm3 (4.0-10.0)
[2020-11-05 08:34] LABS: CALCIUM 6.5 mg/dL (8.5-10.1)
[2020-11-05] MEDS ORDERED: SODIUM CHLORIDE 0.45% 1,000 ML IV SCH (08:59)
[2020-11-05] MEDS: FAMOTIDINE 20 MG/50 ML IVPB 20 MG/50 ML MG IVPB SCH ×2 (09:24→21:47)
[2020-11-05] MEDS: ENOXAPARIN NA (PORCINE) 80 MG/0.8 ML DISP.SYRIN SQ SCH ×2 (09:24→21:47)
[2020-11-05] MEDS: CHOLECALCIFEROL (VIT D3) 1,000 UNIT (25 MCG) TABLET PO SCH (09:26)
[2020-11-05] MEDS: LIDOCAINE 5% TOPICAL PATCH TP SCH (09:27)
[2020-11-05] MEDS: DEXAMETHASONE SOD PHOSPHATE 10 MG/1 ML VIAL IVPUSH SCH ×2 (09:27→21:46)
[2020-11-05] MEDS ORDERED: PT OWN MED DRAWER 7, Y5N ONE (09:30)
[2020-11-05] MEDS: ASCORBIC ACID 500 MG/5 ML NGT SCH ×2 (09:32→21:48)
[2020-11-05] MEDS: VASOPRESSIN 40 UNITS in SODIUM CHLORIDE 98 ML IVPB SCH (10:53)
[2020-11-05 11:51] LABS: ANISOCYTOSIS 1+; MACROCYTOSIS 0; OVALOCYTE 2+; PLATELET ESTIMATE INCREASED; TOXIC GRANULATION 1+
[2020-11-05 12:03] LABS: ARTERIAL BLD GAS O2 SATURATION 97.6 mmHg (95-98); ARTERIAL BLOOD GAS BASE EXCESS 4.9 mmol/L (-2-2); ARTERIAL BLOOD GAS PO2 119.6 mmHg (80-100); ARTERIAL BLOOD GAS pH 7.261 (7.350-7.450)
[2020-11-05 12:10] LABS: ALLENS TEST POSITIVE; VENT MODE A/C; VENT RATE 28
[2020-11-05] MEDS ORDERED: LACTATED RINGERS SOLUTION 1000 ML INFUS.BAG IV STA (13:20)
[2020-11-05] MEDS ORDERED: LACTATED RINGERS SOLUTION 1,000 ML/1,000 ML INFUS.BAG IV SCH (13:30)
[2020-11-05] MEDS ORDERED: PIPERACILLIN/TAZOBACTAM 2.25 GM VIAL IVPB ONE ×2 (17:01→21:36)
[2020-11-05] MEDS: LACTATED RINGERS SOLUTION 1,000 ML/1,000 ML INFUS.BAG IV SCH (17:08)
[2020-11-05] MEDS: PIPERACILLIN/TAZOB 2.25 GM 2.25 GM in DEXTROSE 5%-WATER - 50 ML IVPB SCH (17:08)
[2020-11-05] MEDS ORDERED: SODIUM BICARBONATE 8.4% 50 MEQ/50 ML VIAL ONE (20:26)
[2020-11-05] MEDS ORDERED: PIPERACILLIN/TAZOB 3.375 GM 3.375 GM in DEXTROSE 5%-WATER - 50 ML IVPB SCH (21:00)
[2020-11-05] MEDS: LIDOCAINE PATCH REMOVAL MC SCH (21:47)
[2020-11-06] MEDS: FENTANYL NS IVPB 500 MCG/100 ML BAG IVPB SCH ×2 (01:16→06:56)
[2020-11-06] MEDS: PIPERACILLIN/TAZOB 2.25 GM 2.25 GM in DEXTROSE 5%-WATER - 50 ML IVPB SCH ×3 (01:16→17:47)
[2020-11-06] MEDS: MIDAZOLAM 100 MG/100 ML MG IVPB SCH (01:16)
[2020-11-06] MEDS ORDERED: SODIUM BICARBONATE 8.4% 50 MEQ/50 ML VIAL ONE ×2 (01:45→15:25)
[2020-11-06] MEDS: SODIUM BICARBONATE 8.4% 50 MEQ/50 ML DISP.SYRIN IVPUSH SCH ×2 (02:00→09:30)
[2020-11-06] MEDS: LEVOTHYROXINE SODIUM 100 MCG VIAL IVPUSH SCH (06:07)
[2020-11-06] MEDS: INSULIN SLIDING SCALE (NOVOLOG) 1 VIAL SQ SCH ×4 (06:07→22:38)
[2020-11-06 06:28] LABS: ALLENS TEST POSITIVE; VENT MODE A/C; VENT RATE 28
[2020-11-06 07:44] LABS: ARTERIAL BLD GAS O2 SATURATION 92.3 mmHg (95-98); ARTERIAL BLOOD GAS BASE EXCESS 4.6 mmol/L (-2-2); ARTERIAL BLOOD GAS PO2 69.3 mmHg (80-100); ARTERIAL BLOOD GAS pH 7.331 (7.350-7.450)
[2020-11-06] MEDS ORDERED: PIPERACILLIN/TAZOBACTAM 2.25 GM VIAL IVPB ONE ×2 (07:57→17:36)
[2020-11-06] MEDS ORDERED: DEXTROSE 5%-WATER - 50 ML IVPB ONE ×2 (07:57→17:36)
[2020-11-06 08:07] LABS: BASO % 0.1 % (0-2.0); HEMATOCRIT 20.1 % (35.4-49); LYMPH % 0.8 % (8-40); MCH 28.2 pg (25.7-33.7); MEAN CELL VOLUME 85.4 fl (80-96); MONO % 1.8 % (3.8-10.2); NEUT % 97.3 % (42.8-82.8); PLATELET COUNT 296 K/MM3 (134-434); RBC 2.36 M/mm3 (4.00-5.60); RDW 17.5 % (11.9-15.9)
[2020-11-06 08:32] LABS: HEMOGLOBIN 6.6 GM/dL (11.7-16.9); WHITE BLOOD COUNT 31.1 K/mm3 (4.0-10.0)
[2020-11-06] MEDS: FAMOTIDINE 20 MG/50 ML IVPB 20 MG/50 ML MG IVPB SCH ×2 (09:00→21:56)
[2020-11-06] MEDS: CHOLECALCIFEROL (VIT D3) 1,000 UNIT (25 MCG) TABLET PO SCH (09:23)
[2020-11-06] MEDS: AMINO ACIDS/PROTEIN HYDROLYS 30 ML LIQUID.PKT PO SCH (09:23)
[2020-11-06] MEDS: DEXAMETHASONE SOD PHOSPHATE 10 MG/1 ML VIAL IVPUSH SCH ×2 (09:23→21:51)
[2020-11-06] MEDS: ENOXAPARIN NA (PORCINE) 80 MG/0.8 ML DISP.SYRIN SQ SCH ×2 (09:23→21:54)
[2020-11-06] MEDS: ASCORBIC ACID 500 MG/5 ML NGT SCH ×2 (10:00→21:55)
[2020-11-06] MEDS: VASOPRESSIN 40 UNITS in SODIUM CHLORIDE 98 ML IVPB SCH (10:00)
[2020-11-06] MEDS: LIDOCAINE 5% TOPICAL PATCH TP SCH (10:00)
[2020-11-06 10:38] LABS: POTASSIUM 3.8 mmol/L (3.5-5.1)
[2020-11-06 10:41] LABS: ALBUMIN 1.2 g/dl (3.4-5.0); BLOOD UREA NITROGEN 83.7 mg/dL (7-18); MAGNESIUM 2.4 mg/dL (1.8-2.4)
[2020-11-06 10:44] LABS: CREATININE 4.1 mg/dL (0.55-1.3); PHOSPHOROUS 5.5 mg/dL (2.5-4.9)
[2020-11-06 10:45] LABS: TOT PROT 4.7 g/dl (6.4-8.2)
[2020-11-06 10:46] LABS: BILIRUBIN,TOTAL 0.4 mg/dL (0.2-1)
[2020-11-06 12:00] LABS: CALCIUM 6.3 mg/dL (8.5-10.1)
[2020-11-06 13:42] LABS: OVALOCYTE 1+; PLATELET ESTIMATE ADEQUATE
[2020-11-06] MEDS ORDERED: PROPOFOL 1,000,000 MCG/100 ML VIAL IVPB SCH (15:30)
[2020-11-06] MEDS: LACTATED RINGERS SOLUTION 1,000 ML/1,000 ML INFUS.BAG IV SCH (17:47)
[2020-11-06] MEDS ORDERED: PT OWN MED DRAWER 7, Y5N ONE (20:39)
[2020-11-06] MEDS: NOREPINEPHRINE D5W PREMIX 16,000 MCG/500 ML BAG IVPB SCH (21:51)
[2020-11-06] MEDS: LIDOCAINE PATCH REMOVAL MC SCH ×2 (22:39→23:24)
[2020-11-06] MEDS: VECURONIUM BROMIDE 100 MG/100 ML BAG IVPB SCH (23:45)
[2020-11-07] MEDS: ACETAMINOPHEN 1000 MG/100 ML VIAL (NON FORMULARY) IVPB PRN ×2 (00:37→17:00)
[2020-11-07] MEDS: MIDAZOLAM 100 MG/100 ML MG IVPB SCH ×3 (01:09→20:00)
[2020-11-07] MEDS ORDERED: DEXTROSE 5%-WATER - 50 ML IVPB ONE ×3 (02:07→17:15)
[2020-11-07] MEDS ORDERED: PIPERACILLIN/TAZOBACTAM 2.25 GM VIAL IVPB ONE ×3 (02:07→17:15)
[2020-11-07] MEDS: PIPERACILLIN/TAZOB 2.25 GM 2.25 GM in DEXTROSE 5%-WATER - 50 ML IVPB SCH ×3 (02:25→18:37)
[2020-11-07] MEDS: FENTANYL NS IVPB 500 MCG/100 ML BAG IVPB SCH ×3 (04:00→20:00)
[2020-11-07 07:07] LABS: CHLORIDE 99 mmol/L (98-107); SODIUM 139 mmol/L (136-145)
[2020-11-07 07:11] LABS: ALBUMIN 1.2 g/dl (3.4-5.0); ANION GAP 8 MMOL/L (8-16); BLOOD UREA NITROGEN 99.5 mg/dL (7-18); CO2 32 mmol/L (21-32); GLUCOSE,RANDOM 289 mg/dL (74-106); MAGNESIUM 2.4 mg/dL (1.8-2.4)
[2020-11-07 07:13] LABS: SGPT/ALT 440 U/L (13-61)
[2020-11-07 07:14] LABS: PHOSPHOROUS 6.5 mg/dL (2.5-4.9); SGOT/AST 501 U/L (15-37)
[2020-11-07 07:15] LABS: BILIRUBIN,TOTAL 0.7 mg/dL (0.2-1)
[2020-11-07 07:16] LABS: ALK PHOS 115 U/L (45-117); TOT PROT 4.6 g/dl (6.4-8.2)
[2020-11-07 07:31] LABS: LDH > 1000 U/L (87-246)
[2020-11-07 07:42] LABS: CALCIUM 5.7 mg/dL (8.5-10.1)
[2020-11-07] MEDS ORDERED: PT OWN MED DRAWER 7, Y5N ONE ×2 (08:22→21:24)
[2020-11-07] MEDS: AMINO ACIDS/PROTEIN HYDROLYS 30 ML LIQUID.PKT PO SCH (08:23)
[2020-11-07] MEDS: LEVOTHYROXINE SODIUM 100 MCG VIAL IVPUSH SCH (08:23)
[2020-11-07] MEDS: INSULIN SLIDING SCALE (NOVOLOG) 1 VIAL SQ SCH ×4 (08:24→22:01)
[2020-11-07] MEDS: DEXAMETHASONE SOD PHOSPHATE 10 MG/1 ML VIAL IVPUSH SCH ×2 (09:15→21:15)
[2020-11-07] MEDS: CHOLECALCIFEROL (VIT D3) 1,000 UNIT (25 MCG) TABLET PO SCH (09:15)
[2020-11-07] MEDS: ENOXAPARIN NA (PORCINE) 80 MG/0.8 ML DISP.SYRIN SQ SCH ×2 (09:15→21:17)
[2020-11-07] MEDS: FAMOTIDINE 20 MG/50 ML IVPB 20 MG/50 ML MG IVPB SCH ×2 (09:26→21:18)
[2020-11-07] MEDS: ASCORBIC ACID 500 MG/5 ML NGT SCH ×2 (09:26→21:32)
[2020-11-07 09:30] LABS: BASO % 0.1 % (0-2.0); HEMATOCRIT 25.6 % (35.4-49); HEMOGLOBIN 8.4 GM/dL (11.7-16.9); LYMPH % 1.4 % (8-40); MCH 28.9 pg (25.7-33.7); MCHC 32.8 g/dl (32.0-35.9); MEAN CELL VOLUME 88.2 fl (80-96); MEAN PLT VOLUME 9.2 fl (7.5-11.1); MONO % 2.4 % (3.8-10.2); NEUT % 96.1 % (42.8-82.8); PLATELET COUNT 321 K/MM3 (134-434); RDW 16.6 % (11.9-15.9); WHITE BLOOD COUNT 29.7 K/mm3 (4.0-10.0)
[2020-11-07] MEDS: VASOPRESSIN 40 UNITS in SODIUM CHLORIDE 98 ML IVPB SCH (09:30)
[2020-11-07] MEDS ORDERED: SODIUM BICARBONATE 8.4% 50 MEQ/50 ML DISP.SYRIN IVPUSH SCH (10:00)
[2020-11-07 10:11] LABS: ARTERIAL BLD GAS O2 SATURATION 92.9 mmHg (95-98); ARTERIAL BLOOD GAS BASE EXCESS -6.1 mmol/L (-2-2); ARTERIAL BLOOD GAS PO2 82.8 mmHg (80-100)
[2020-11-07 10:17] LABS: ALLENS TEST POSITIVE
[2020-11-07 10:18] LABS: ARTERIAL BLOOD GAS pH 7.171 (7.350-7.450)
[2020-11-07 10:19] LABS: VENT MODE A/C; VENT RATE 28
[2020-11-07 11:54] LABS: ANISOCYTOSIS 2+; MACROCYTOSIS 1+; OVALOCYTE 2+; PLATELET ESTIMATE NORMAL
[2020-11-07] MEDS: LIDOCAINE 5% TOPICAL PATCH TP SCH (12:57)
[2020-11-07 17:41] LABS: ARTERIAL BLD GAS O2 SATURATION 99.2 mmHg (95-98); ARTERIAL BLOOD GAS BASE EXCESS -6.5 mmol/L (-2-2); ARTERIAL BLOOD GAS PO2 208.7 mmHg (80-100)
[2020-11-07 17:43] LABS: ALLENS TEST POSITIVE
[2020-11-07 17:44] LABS: VENT MODE A/C; VENT RATE 28
[2020-11-07 17:48] LABS: ARTERIAL BLOOD GAS pH 7.199 (7.350-7.450)
[2020-11-07] MEDS: LACTATED RINGERS SOLUTION 1,000 ML/1,000 ML INFUS.BAG IV SCH (18:37)
[2020-11-07] MEDS: LIDOCAINE PATCH REMOVAL MC SCH (21:17)
[2020-11-07] MEDS: SODIUM BICARBONATE 8.4% 50 MEQ/50 ML DISP.SYRIN IVPUSH SCH (21:32)
[2020-11-07] MEDS: VECURONIUM BROMIDE 100 MG/100 ML BAG IVPB SCH (23:29)
[2020-11-08] MEDS: NOREPINEPHRINE D5W PREMIX 16,000 MCG/500 ML BAG IVPB SCH (01:00)
[2020-11-08] MEDS: FENTANYL NS IVPB 500 MCG/100 ML BAG IVPB SCH ×3 (01:00→17:55)
[2020-11-08] MEDS ORDERED: DEXTROSE 5%-WATER - 50 ML IVPB ONE ×3 (02:43→17:24)
[2020-11-08] MEDS ORDERED: PIPERACILLIN/TAZOBACTAM 2.25 GM VIAL IVPB ONE ×3 (02:43→17:24)
[2020-11-08] MEDS: PIPERACILLIN/TAZOB 2.25 GM 2.25 GM in DEXTROSE 5%-WATER - 50 ML IVPB SCH ×3 (02:51→17:54)
[2020-11-08] MEDS ORDERED: SODIUM BICARBONATE 8.4% 50 MEQ/50 ML VIAL ONE (05:21)
[2020-11-08] MEDS: SODIUM BICARBONATE 8.4% 50 MEQ/50 ML DISP.SYRIN IVPUSH SCH ×3 (05:31→21:35)
[2020-11-08] MEDS ORDERED: PT OWN MED DRAWER 7, Y5N ONE ×3 (05:32→21:21)
[2020-11-08] MEDS: INSULIN SLIDING SCALE (NOVOLOG) 1 VIAL SQ SCH ×4 (06:36→23:03)
[2020-11-08 07:03] LABS: HEMATOCRIT 25.3 % (35.4-49); HEMOGLOBIN 8.4 GM/dL (11.7-16.9); MCH 29.2 pg (25.7-33.7); MCHC 33.1 g/dl (32.0-35.9); MEAN CELL VOLUME 88.2 fl (80-96); PLATELET COUNT 281 K/MM3 (134-434); RBC 2.87 M/mm3 (4.00-5.60); RDW 16.9 % (11.9-15.9); WHITE BLOOD COUNT 29.8 K/mm3 (4.0-10.0)
[2020-11-08 07:07] LABS: POTASSIUM 4.1 mmol/L (3.5-5.1)
[2020-11-08 07:09] LABS: ALBUMIN 1.2 g/dl (3.4-5.0)
[2020-11-08 07:12] LABS: CREATININE 5.7 mg/dL (0.55-1.3)
[2020-11-08 07:14] LABS: BILIRUBIN,TOTAL 0.6 mg/dL (0.2-1); TOT PROT 4.4 g/dl (6.4-8.2)
[2020-11-08] MEDS: LEVOTHYROXINE SODIUM 100 MCG VIAL IVPUSH SCH (07:48)
[2020-11-08] MEDS: FAMOTIDINE 20 MG/50 ML IVPB 20 MG/50 ML MG IVPB SCH ×2 (09:45→21:35)
[2020-11-08] MEDS: DEXAMETHASONE SOD PHOSPHATE 10 MG/1 ML VIAL IVPUSH SCH ×2 (09:46→21:33)
[2020-11-08] MEDS: AMINO ACIDS/PROTEIN HYDROLYS 30 ML LIQUID.PKT PO SCH (09:46)
[2020-11-08] MEDS: ENOXAPARIN NA (PORCINE) 80 MG/0.8 ML DISP.SYRIN SQ SCH (09:47)
[2020-11-08] MEDS: ASCORBIC ACID 500 MG/5 ML NGT SCH ×2 (09:48→21:35)
[2020-11-08] MEDS: CHOLECALCIFEROL (VIT D3) 1,000 UNIT (25 MCG) TABLET PO SCH (09:48)
[2020-11-08] MEDS: LIDOCAINE 5% TOPICAL PATCH TP SCH (09:48)
[2020-11-08 10:14] LABS: BLOOD UREA NITROGEN 128.5 mg/dL (7-18); CALCIUM 5.7 mg/dL (8.5-10.1)
[2020-11-08] MEDS ORDERED: HEPARIN NA (PORCINE) 5,000 UNITS/ML 1ML VIAL IVPUSH PRN ×2 (15:54)
[2020-11-08] MEDS: LACTATED RINGERS SOLUTION 1,000 ML/1,000 ML INFUS.BAG IV SCH ×2 (16:21→23:00)
[2020-11-08] MEDS: MIDAZOLAM 100 MG/100 ML MG IVPB SCH (18:55)
[2020-11-08] MEDS: LIDOCAINE PATCH REMOVAL MC SCH (21:35)
[2020-11-08] MEDS: HEPARIN SOD,PORK IN 0.45% NACL 25,000 UNITS/500 ML INFUS.BAG IVPB SCH (22:39)
[2020-11-09] MEDS ORDERED: PIPERACILLIN/TAZOBACTAM 2.25 GM VIAL IVPB ONE ×3 (01:09→16:52)
[2020-11-09] MEDS ORDERED: DEXTROSE 5%-WATER - 50 ML IVPB ONE ×3 (01:09→16:52)
[2020-11-09] MEDS: PIPERACILLIN/TAZOB 2.25 GM 2.25 GM in DEXTROSE 5%-WATER - 50 ML IVPB SCH ×3 (01:10→17:25)
[2020-11-09] MEDS: FENTANYL NS IVPB 500 MCG/100 ML BAG IVPB SCH ×2 (04:00→21:15)
[2020-11-09] MEDS ORDERED: SODIUM BICARBONATE 8.4% 50 MEQ/50 ML VIAL ONE (05:40)
[2020-11-09] MEDS: SODIUM BICARBONATE 8.4% 50 MEQ/50 ML DISP.SYRIN IVPUSH SCH ×3 (05:58→21:31)
[2020-11-09] MEDS: NOREPINEPHRINE D5W PREMIX 16,000 MCG/500 ML BAG IVPB SCH (05:59)
[2020-11-09] MEDS: INSULIN SLIDING SCALE (NOVOLOG) 1 VIAL SQ SCH ×4 (06:10→22:09)
[2020-11-09] MEDS: LEVOTHYROXINE SODIUM 100 MCG VIAL IVPUSH SCH (06:11)
[2020-11-09 08:12] LABS: ALBUMIN 1.2 g/dl (3.4-5.0); BILIRUBIN,TOTAL 0.5 mg/dL (0.2-1); CREATININE 6.2 mg/dL (0.55-1.3); POTASSIUM 3.7 mmol/L (3.5-5.1); TOT PROT 4.3 g/dl (6.4-8.2)
[2020-11-09 08:21] LABS: BLOOD UREA NITROGEN 133.9 mg/dL (7-18); CALCIUM 5.8 mg/dL (8.5-10.1)
[2020-11-09] MEDS: FAMOTIDINE 20 MG/50 ML IVPB 20 MG/50 ML MG IVPB SCH ×2 (10:29→21:31)
[2020-11-09] MEDS: DEXAMETHASONE SOD PHOSPHATE 10 MG/1 ML VIAL IVPUSH SCH ×2 (11:00→21:32)
[2020-11-09] MEDS: LIDOCAINE 5% TOPICAL PATCH TP SCH (12:52)
[2020-11-09] MEDS: CHOLECALCIFEROL (VIT D3) 1,000 UNIT (25 MCG) TABLET PO SCH (13:40)
[2020-11-09] MEDS: AMINO ACIDS/PROTEIN HYDROLYS 30 ML LIQUID.PKT PO SCH (13:40)
[2020-11-09] MEDS: ASCORBIC ACID 500 MG/5 ML NGT SCH ×2 (13:40→21:31)
[2020-11-09] MEDS ORDERED: CALCIUM GLUCONATE 10% - 1,000 MG/10 ML VIAL IVPB ONE (13:55)
[2020-11-09] MEDS: LACTATED RINGERS SOLUTION 1,000 ML/1,000 ML INFUS.BAG IV SCH (16:23)
[2020-11-09] MEDS ORDERED: PT OWN MED DRAWER 7, Y5N ONE (21:27)
[2020-11-09] MEDS: LIDOCAINE PATCH REMOVAL MC SCH (21:32)
[2020-11-10] MEDS: HEPARIN SOD,PORK IN 0.45% NACL 25,000 UNITS/500 ML INFUS.BAG IVPB SCH
[2020-11-10] MEDS ORDERED: PIPERACILLIN/TAZOBACTAM 2.25 GM VIAL IVPB ONE ×3 (01:59→16:09)
[2020-11-10] MEDS ORDERED: DEXTROSE 5%-WATER - 50 ML IVPB ONE ×3 (02:00→16:09)
[2020-11-10] MEDS: PIPERACILLIN/TAZOB 2.25 GM 2.25 GM in DEXTROSE 5%-WATER - 50 ML IVPB SCH ×3 (02:05→18:16)
[2020-11-10] MEDS: FENTANYL NS IVPB 500 MCG/100 ML BAG IVPB SCH ×2 (04:00→19:50)
[2020-11-10] MEDS ORDERED: PT OWN MED DRAWER 7, Y5N ONE ×4 (05:58→21:55)
[2020-11-10] MEDS: SODIUM BICARBONATE 8.4% 50 MEQ/50 ML DISP.SYRIN IVPUSH SCH ×3 (06:03→21:58)
[2020-11-10] MEDS: LEVOTHYROXINE SODIUM 100 MCG VIAL IVPUSH SCH (06:03)
[2020-11-10 06:11] LABS: ARTERIAL BLD GAS O2 SATURATION 90.8 mmHg (95-98); ARTERIAL BLOOD GAS BASE EXCESS -1.7 mmol/L (-2-2); ARTERIAL BLOOD GAS PO2 68.4 mmHg (80-100); ARTERIAL BLOOD GAS pH 7.269 (7.350-7.450)
[2020-11-10 06:12] LABS: VENT MODE A/C; VENT RATE 28
[2020-11-10] MEDS: INSULIN SLIDING SCALE (NOVOLOG) 1 VIAL SQ SCH ×4 (06:25→22:12)
[2020-11-10 07:28] LABS: BASO % 0.2 % (0-2.0); HEMATOCRIT 24.8 % (35.4-49); HEMOGLOBIN 8.3 GM/dL (11.7-16.9); LYMPH % 0.6 % (8-40); MCH 29.3 pg (25.7-33.7); MCHC 33.6 g/dl (32.0-35.9); MEAN PLT VOLUME 10.8 fl (7.5-11.1); MONO % 2.7 % (3.8-10.2); NEUT % 96.5 % (42.8-82.8); PLATELET COUNT 253 K/MM3 (134-434); RBC 2.85 M/mm3 (4.00-5.60); RDW 18.1 % (11.9-15.9)
[2020-11-10 07:36] LABS: WHITE BLOOD COUNT 32.7 K/mm3 (4.0-10.0)
[2020-11-10] MEDS: AMINO ACIDS/PROTEIN HYDROLYS 30 ML LIQUID.PKT PO SCH (09:15)
[2020-11-10] MEDS: DEXAMETHASONE SOD PHOSPHATE 10 MG/1 ML VIAL IVPUSH SCH ×2 (09:15→22:00)
[2020-11-10] MEDS: LIDOCAINE 5% TOPICAL PATCH TP SCH (09:16)
[2020-11-10] MEDS: FAMOTIDINE 20 MG/50 ML IVPB 20 MG/50 ML MG IVPB SCH ×2 (09:16→22:02)
[2020-11-10] MEDS: ASCORBIC ACID 500 MG/5 ML NGT SCH ×2 (09:16→22:01)
[2020-11-10] MEDS: CHOLECALCIFEROL (VIT D3) 1,000 UNIT (25 MCG) TABLET PO SCH (09:18)
[2020-11-10 10:23] LABS: ANISOCYTOSIS 1+; MACROCYTOSIS 0; OVALOCYTE 2+; PLATELET ESTIMATE NORMAL
[2020-11-10 11:53] LABS: POTASSIUM 3.2 mmol/L (3.5-5.1)
[2020-11-10 11:56] LABS: ALBUMIN 1.4 g/dl (3.4-5.0); MAGNESIUM 2.6 mg/dL (1.8-2.4)
[2020-11-10 11:58] LABS: CREATININE 6.7 mg/dL (0.55-1.3)
[2020-11-10 11:59] LABS: PHOSPHOROUS 8.9 mg/dL (2.5-4.9)
[2020-11-10 12:00] LABS: BILIRUBIN,TOTAL 0.5 mg/dL (0.2-1); TOT PROT 4.6 g/dl (6.4-8.2)
[2020-11-10 12:08] LABS: BLOOD UREA NITROGEN 146.7 mg/dL (7-18)
[2020-11-10 12:09] LABS: CALCIUM 5.7 mg/dL (8.5-10.1)
[2020-11-10] MEDS ORDERED: CALCIUM GLUCONATE 10% - 1,000 MG/10 ML VIAL IVPB ONE ×2 (12:45→14:11)
[2020-11-10 16:25] VITALS: BMI 31.4
[2020-11-10] MEDS ORDERED: SODIUM BICARBONATE 8.4% 50 MEQ/50 ML VIAL IVPUSH SCH (16:30)
[2020-11-10] MEDS: LACTATED RINGERS SOLUTION 1,000 ML/1,000 ML INFUS.BAG IV SCH (16:38)
[2020-11-10] MEDS: KCL 10 MEQ IVPB 10 MEQ/100 ML INFUS.BAG IVPB SCH ×2 (17:09→18:15)
[2020-11-10] MEDS: SEVELAMER CARBONATE 2.4 GM POWDER PACKET PO SCH (18:15)
[2020-11-10] MEDS ORDERED: MIDAZOLAM 100 MG/100 ML MG IVPB ONE (21:49)
[2020-11-10] MEDS: LIDOCAINE PATCH REMOVAL MC SCH (22:01)
[2020-11-10] MEDS: BANATROL PLUS POWDER PACKET PO SCH (22:01)
[2020-11-10] MEDS: MIDAZOLAM 100 MG/100 ML MG IVPB SCH ×2 (22:25)
[2020-11-11] MEDS ORDERED: DEXTROSE 5%-WATER - 50 ML IVPB ONE ×4 (00:52→19:28)
[2020-11-11] MEDS ORDERED: PIPERACILLIN/TAZOBACTAM 2.25 GM VIAL IVPB ONE ×4 (00:52→19:27)
[2020-11-11] MEDS: PIPERACILLIN/TAZOB 2.25 GM 2.25 GM in DEXTROSE 5%-WATER - 50 ML IVPB SCH ×3 (01:33→18:13)
[2020-11-11] MEDS: HEPARIN SOD,PORK IN 0.45% NACL 25,000 UNITS/500 ML INFUS.BAG IVPB SCH (02:08)
[2020-11-11] MEDS ORDERED: SODIUM BICARBONATE 8.4% 50 MEQ/50 ML VIAL ONE (05:16)
[2020-11-11] MEDS ORDERED: PT OWN MED DRAWER 7, Y5N ONE ×3 (05:18→17:55)
[2020-11-11] MEDS: SODIUM BICARBONATE 8.4% 50 MEQ/50 ML DISP.SYRIN IVPUSH SCH (05:20)
[2020-11-11] MEDS: BANATROL PLUS POWDER PACKET PO SCH ×2 (05:20→14:00)
[2020-11-11] MEDS ORDERED: PROPOFOL 1,000,000 MCG/100 ML VIAL IVPB SCH (06:00)
[2020-11-11] MEDS: LEVOTHYROXINE SODIUM 100 MCG VIAL IVPUSH SCH (06:00)
[2020-11-11] MEDS: INSULIN SLIDING SCALE (NOVOLOG) 1 VIAL SQ SCH ×3 (06:24→17:30)
[2020-11-11 06:43] LABS: BASO % 0.2 % (0-2.0); HEMOGLOBIN 7.4 GM/dL (11.7-16.9); MCH 29.2 pg (25.7-33.7); MCHC 33.6 g/dl (32.0-35.9); MEAN CELL VOLUME 86.8 fl (80-96); MEAN PLT VOLUME 11.1 fl (7.5-11.1); NEUT % 96.8 % (42.8-82.8); PLATELET COUNT 225 K/MM3 (134-434); RBC 2.53 M/mm3 (4.00-5.60); RDW 18.7 % (11.9-15.9)
[2020-11-11] MEDS: FENTANYL NS IVPB 500 MCG/100 ML BAG IVPB SCH (06:52)
[2020-11-11 07:05] LABS: WHITE BLOOD COUNT 34.4 K/mm3 (4.0-10.0)
[2020-11-11 07:55] LABS: ALBUMIN 1.3 g/dl (3.4-5.0); BILIRUBIN,TOTAL 0.7 mg/dL (0.2-1); CREATININE 6.3 mg/dL (0.55-1.3); MAGNESIUM 2.4 mg/dL (1.8-2.4); PHOSPHOROUS 7.9 mg/dL (2.5-4.9); TOT PROT 4.2 g/dl (6.4-8.2)
[2020-11-11 09:01] LABS: BLOOD UREA NITROGEN 145.9 mg/dL (7-18)
[2020-11-11 09:02] LABS: CALCIUM 5.5 mg/dL (8.5-10.1); POTASSIUM 2.9 mmol/L (3.5-5.1)
[2020-11-11] MEDS ORDERED: CALCIUM GLUCONATE 10% - 1,000 MG/10 ML VIAL IVPB ONE (09:05)
[2020-11-11] MEDS: KCL 10 MEQ IVPB 10 MEQ/100 ML INFUS.BAG IVPB SCH ×3 (09:26→12:41)
[2020-11-11] MEDS: FAMOTIDINE 20 MG/50 ML IVPB 20 MG/50 ML MG IVPB SCH (09:27)
[2020-11-11] MEDS: AMINO ACIDS/PROTEIN HYDROLYS 30 ML LIQUID.PKT PO SCH (09:28)
[2020-11-11] MEDS: CHOLECALCIFEROL (VIT D3) 1,000 UNIT (25 MCG) TABLET PO SCH (09:28)
[2020-11-11 09:31] LABS: ANISOCYTOSIS 2+; MACROCYTOSIS 2+; OVALOCYTE 1+; PLATELET ESTIMATE NORMAL
[2020-11-11] MEDS: ASCORBIC ACID 500 MG/5 ML NGT SCH (09:41)
[2020-11-11] MEDS: SEVELAMER CARBONATE 2.4 GM POWDER PACKET PO SCH ×3 (09:42→18:13)
[2020-11-11] MEDS: DEXAMETHASONE SOD PHOSPHATE 10 MG/1 ML VIAL IVPUSH SCH (09:42)
[2020-11-11] MEDS: LIDOCAINE 5% TOPICAL PATCH TP SCH (12:28)
[2020-11-11] MEDS ORDERED: POTASSIUM CHLORIDE ORAL LIQUID 20 MEQ/15 ML NGT ONE (13:19)
[2020-11-11] MEDS ORDERED: SODIUM CHLORIDE 250 ML IV PRN (13:24)
[2020-11-11] MEDS: LACTATED RINGERS SOLUTION 1,000 ML/1,000 ML INFUS.BAG IV SCH (16:50)
[2020-11-11] MEDS ORDERED: VASOPRESSIN 20 UNITS/ML VIAL IV ONE (18:54)
[2020-11-11] MEDS: MIDAZOLAM 100 MG/100 ML MG IVPB SCH (20:43)
[2020-11-11] MEDS: VASOPRESSIN 40 UNITS in SODIUM CHLORIDE 98 ML IVPB SCH ×2 (20:45→21:30)
[2020-11-11] MEDS ORDERED: PHENYLEPHRINE HCL 50,000 MCG in DEXTROSE 5%-WATER - 495 ML IV SCH (21:30)
[2020-11-12 00:38] VITALS: BP 149/28; PULSE 61; TEMP 96
== END 2020-11-11 22:22 | disposition expired | DRG 710 ==
LOC: JER 14:41 → JERBED 16:05 → J4W 10-24 02:23 → JICU 11-03 10:00
PROVIDERS: ADMIT Internal Medicine; ATTEND Internal Medicine
PROC: 8E0ZXY6 Isolation (ICD-10-PCS; 2020-10-23)
PROC: XW13325 Transfusion of Convalescent Plasma (Nonautologous) into Peripheral Vein, Percutaneous Approach, New Technology Group 5 (ICD-10-PCS; principal; 2020-10-25)
PROC: XW033E5 Introduction of Remdesivir Anti-infective into Peripheral Vein, Percutaneous Approach, New Technology Group 5 (ICD-10-PCS; 2020-10-25)
PROC: 0CHY7BZ Insertion of Airway into Mouth and Throat, Via Natural or Artificial Opening (ICD-10-PCS; 2020-11-03)
PROC: 5A1955Z Respiratory Ventilation, Greater than 96 Consecutive Hours (ICD-10-PCS; 2020-11-03)
PROC: 05HM33Z Insertion of Infusion Device into Right Internal Jugular Vein, Percutaneous Approach (ICD-10-PCS; 2020-11-03)
PROC: B543ZZA Ultrasonography of Right Jugular Veins, Guidance (ICD-10-PCS; 2020-11-03)
PROC: 5A12012 Performance of Cardiac Output, Single, Manual (ICD-10-PCS; 2020-11-03)
PROC: 05HN33Z Insertion of Infusion Device into Left Internal Jugular Vein, Percutaneous Approach (ICD-10-PCS; 2020-11-03)
PROC: B544ZZA Ultrasonography of Left Jugular Veins, Guidance (ICD-10-PCS; 2020-11-03)
PROC: 4A133B1 Monitoring of Arterial Pressure, Peripheral, Percutaneous Approach (ICD-10-PCS; 2020-11-03)
PROC: 4A133J1 Monitoring of Arterial Pulse, Peripheral, Percutaneous Approach (ICD-10-PCS; 2020-11-03)
PROC: 0DH673Z Insertion of Infusion Device into Stomach, Via Natural or Artificial Opening (ICD-10-PCS; 2020-11-03)
PROC: 30233N1 Transfusion of Nonautologous Red Blood Cells into Peripheral Vein, Percutaneous Approach (ICD-10-PCS; 2020-11-06)
PROC: 05HM33Z Insertion of Infusion Device into Right Internal Jugular Vein, Percutaneous Approach (ICD-10-PCS; 2020-11-11)
PROC: B543ZZA Ultrasonography of Right Jugular Veins, Guidance (ICD-10-PCS; 2020-11-11)
PROC: 5A1D70Z Performance of Urinary Filtration, Intermittent, Less than 6 Hours Per Day (ICD-10-PCS; 2020-11-11)
DX: A41.89 Other specified sepsis (principal); U07.1 COVID-19; J12.89 Other viral pneumonia; J96.21 Acute and chronic respiratory failure with hypoxia; N17.9 Acute kidney failure, unspecified; R43.8 Other disturbances of smell and taste; E03.9 Hypothyroidism, unspecified; J44.9 Chronic obstructive pulmonary disease, unspecified; J45.909 Unspecified asthma, uncomplicated; I10 Essential (primary) hypertension; E11.65 Type 2 diabetes mellitus with hyperglycemia; E87.2 Acidosis; I24.8 Other forms of acute ischemic heart disease; I46.9 Cardiac arrest, cause unspecified; R65.21 Severe sepsis with septic shock; R00.0 Tachycardia, unspecified; D72.829 Elevated white blood cell count, unspecified; F41.9 Anxiety disorder, unspecified; E86.9 Volume depletion, unspecified; R63.0 Anorexia; E87.1 Hypo-osmolality and hyponatremia; R42 Dizziness and giddiness; M54.5 Low back pain; R00.1 Bradycardia, unspecified; E66.9 Obesity, unspecified; Z68.32 Body mass index [BMI] 32.0-32.9, adult
CPT/HCPCS: 31500; 36415; 36430; 36600; 71045-TC-FY; 80048; 80053; 81003; 82248; 82436; 82550; 82565; 82728; 82803; 82962; 83605; 83615; 83735; 84100; 84133; 84300; 84443; 84484; 85025; 85027; 85379; 85610; 85651; 85730; 86140; 86850; 86900; 86901; 86922; 87040; 87070; 87086; 87205; 87804; 93005; 93010; 94002; 94660; 99285-25; C9399; C9803; G0008; J0131; J1100; P9017; P9058; Q2036; U0003